=== PATIENT | male | born 1995 ===

== ENCOUNTER 2017-01-25 09:16 | Emergency (ER) | payer OTHER ==
--- NOTE | 2017-01-25 10:38 | UC ---
Truncal Trauma HPI - HPI Summary HPI Summary: complaint of ribcage pain pain in sternum and ribs and radiates around to the side of chest was wrestling with his friend and was body slammed by his friend woke up the next day and couldn't breath wihtout pain coughing, sneezing , deep breathsincreases the pain resting reduces the pain took 600 mg Ibuprofen yesterday with minimal relief denies shortness of breath - History Of Current Complaint Chief Complaint: UCGeneralIllness Stated Complaint: LEFT RIB INJURY Time Seen by Provider: 01/25/17 10:29 Hx Obtained From: Patient - Allergies/Home Medications Allergies/Adverse Reactions: Allergies Allergy/AdvReac Type Severity Reaction Status Date / Time No Known Allergies Allergy Verified 01/25/17 10:06 Home Medications: Home Medications Ibuprofen TAB* [Advil TAB*] 600 mg PO Q6H PRN 01/25/17 [History Confirmed ] PMH/Surg Hx/FS Hx/Imm Hx Previously Healthy: Yes - Surgical History Surgical History: Yes Surgery Procedure, Year, and Place: right ACL reconstruction - Family History Known Family History: Negative: Cardiac Disease, Hypertension, Diabetes - Social History Occupation: Employed Full-time Lives: With Family Alcohol Use: Weekly Substance Use Type: Marijuana Substance Use Comment - Amount & Last Used: last used this morning Smoking Status (MU): Light Every Day Tobacco Smoker Type: Cigarettes Amount Used/How Often: 3-4 cigarettes daily Cessation Counseling: Patient Advised to Stop Review of Systems Constitutional: Negative Skin: Negative Eyes: Negative ENT: Negative, Dental Pain Cardiovascular: Negative Gastrointestinal: Negative Genitourinary: Negative Motor: Negative Neurovascular: Negative Musculoskeletal: Other: - left chest wall pain Neurological: Negative Psychological: Negative All Other Systems Reviewed And Are Negative: Yes Physical Exam Triage Information Reviewed: Yes Appearance: No Pain Distress, Well-Nourished Vital Signs: Initial Vital Signs Temp 98.3 F 01/25/17 10:07 Pulse 51 01/25/17 10:07 Resp 16 01/25/17 10:07 BP 125/64 01/25/17 10:07 Pulse Ox 99 01/25/17 10:07 Vital Signs Reviewed: Yes Eyes: Positive: Conjunctiva Clear ENT: Positive: Pharynx normal, TMs normal Neck: Positive: Other: - no cpsine tenderness Respiratory: Positive: Lungs clear, Normal breath sounds, No respiratory distress, No accessory muscle use Cardiovascular: Positive: RRR, No Murmur, Pulses Normal Abdomen Description: Positive: Nontender, Soft Bowel Sounds: Positive: Present Musculoskeletal: Positive: No Edema, Other: - left side of sternum and ribs 6, 7 ,8 with tenderness , no crepitus Neurological: Positive: Alert Psychological Exam: Normal Skin Exam: Normal Truncal Trauma Course/Dx - Course Course Of Treatment: exam completed. chest and rib x-ray negative for fracture and another other abnormalities. will treat for rib contusion, NSAIDS, deep breathing to avoid pneumonia and followup with PCP - Differential Dx/Diagnosis Differential Diagnosis/HQI/PQRI: Cardiac Contusion, Chest Wall Contusion, Pneumothorax, Pulmonary Contusion, Rib Fracture Provider Diagnoses: left rib contusion Discharge - Discharge Plan Condition: Stable Disposition: HOME Patient Education Materials: Rib Contusion (ED) Referrals: Non Staff,Doctor [Primary Care Provider] - [facility] [place] [facility] [Outside] Additional Instructions: Increase fluids and rest Take acetaminophen or ibuprofen for fever or pain Please review your discharge instructions. If your symptoms do not improve please call your primary care provider or return to urgent care.
[2017-01-25] MEDS ORDERED: Ketorolac INJ* 60 MG/2 ML VIAL IM ONE (11:21)
--- NOTE | 2017-01-25 11:35 | RAD ---
INDICATION: Anterior left rib pain overlying the ninth through 12th ribs after wrestling the previous night. COMPARISON: None. TECHNIQUE: 4 views of the left ribs were obtained. FINDINGS: An external marker is seen overlying the posterior lateral left lower ribs. No fracture or significant focal osseous abnormality is seen. No pneumothorax is apparent. Limited views demonstrate grossly clear lungs. IMPRESSION: No radiographically apparent displaced rib fracture or pneumothorax. If the patient's symptoms persist, follow-up imaging is recommended.
[2017-01-25 11:56] VITALS: BP 130/76
== END 2017-01-25 11:56 | disposition home or self-care (01) ==
LOC: UCCORT 09:16
DX: S20.219A Contusion of unspecified front wall of thorax, initial encounter (principal); Y93.72 Activity, wrestling; Z72.0 Tobacco use
CPT/HCPCS: 96372; 99202; G0463; J1885